=== PATIENT | male | born 1975 | race African-American/Black ===

== ENCOUNTER 2021-01-16 05:28 | Emergency (ER) | payer MEDICAID ==
[~2021-01-16] VITALS: Ht 175.3 cm; Wt 125.0 kg
[2021-01-16] MEDS ORDERED: OXYCODONE HCL/ACETAMINOPHEN 5/325MG TABLET PO ONE (05:45)
[2021-01-16 06:26] LABS: BASOPHILS % 0.4 % (0.0-2.0); EOSINOPHILS % 0.1 % (0.0-5.0); HEMATOCRIT. 44.7 % (42.0-52.0); HEMOGLOBIN. 15.2 g/dL (14.0-18.0); LYMPHOCYTES % 13.9 % (20.0-50.0); MEAN CORPUSCULAR HEMOGLOBIN 32.1 pg (28.0-32.0); MEAN CORPUSCULAR VOLUME 94.8 fL (80.0-94.0); MEAN PLATELET VOLUME 7.7 fl (7.4-10.4); MONOCYTES % 6.6 % (2.0-8.0); PLATELET 286 x1000/uL (130-400); RED BLOOD CELL COUNT 4.72 mill/uL (4.7-6.1); RED CELL DISTRIBUTION WIDTH 14.4 % (11.6-14.6)
[2021-01-16 06:37] LABS: CHLORIDE 110 mEq/L (98-107)
[2021-01-16 06:41] LABS: ETHANOL BLOOD 214 mg/dL
[2021-01-16] MEDS ORDERED: TETANUS, DIPHTHERIA, PERTUSSIS VAC/PF 0.5ML (>10YR OLD) IM ONE (08:00)
[2021-01-16] MEDS ORDERED: LIDOCAINE HCL/PF 1% 10 MG/ML 5ML VIAL INFIL ONE (08:00)
[2021-01-16] MEDS ORDERED: LIDOCAINE HCL/EPINEPHRINE 1%-EPI 1:100,000 20 ML VIAL INFIL ONE (08:00)
[2021-01-16] MEDS ORDERED: LIDOCAINE HCL 1% 10 MG/ML 10ML VIAL INJ NR (08:15)
[2021-01-16] MEDS ORDERED: TOPUD PO (08:58)
[2021-01-16 11:05] VITALS: BP 114/84
== END 2021-01-16 11:14 | disposition home or self-care (01) ==
LOC: ER 05:28
DX: S02.2XXA Fracture of nasal bones, initial encounter for closed fracture (principal); S01.511A Laceration without foreign body of lip, initial encounter; S09.8XXA Other specified injuries of head, initial encounter; K08.89 Other specified disorders of teeth and supporting structures; R45.83 Excessive crying of child, adolescent or adult; Z65.4 Victim of crime and terrorism; I10 Essential (primary) hypertension; V49.49XA Driver injured in collision with other motor vehicles in traffic accident, initial encounter; Y04.2XXA Assault by strike against or bumped into by another person, initial encounter; Y93.89 Activity, other specified; Y92.488 Other paved roadways as the place of occurrence of the external cause; K43.9 Ventral hernia without obstruction or gangrene; Z72.89 Other problems related to lifestyle
CPT/HCPCS: 12013; 36415; 70450; 70486; 71045; 72125; 74176; 80053; 80320; 85025; 90715; 99285; J3490; G0480

== ENCOUNTER 2024-09-05 21:06 | Emergency (ER) | payer MEDICAID ==
[~2024-09-05] VITALS: Ht 170.2 cm; Wt 110.0 kg
[~2024-09-05 21:06] MED LIST: TOPUD PO
[2024-09-05 21:42] VITALS: O2SAT 97
[2024-09-05 22:26] LABS: CLARITY URINE CLEAR (CLEAR); COLOR URINE DARK YELLOW (YELLOW); GLUCOSE URINE NEGATIVE (NEGATIVE); KETONES URINE 1+ (NEGATIVE); LEUKOCYTE ESTERASE URINE NEGATIVE (NEGATIVE); NITRITE URINE NEGATIVE (NEGATIVE); OCCULT BLOOD URINE NEGATIVE (NEGATIVE); PH URINE 6.0 (4.5-8.0); PROTEIN URINE TRACE (NEGATIVE); SPECIFIC GRAVITY URINE 1.027 (1.005-1.030); UROBILINOGEN URINE 2.0 E.U./dL (0.2-1.0)
[2024-09-05 22:44] LABS: *AMPHETAMINES SCREEN URINE NEGATIVE (NEGATIVE); *BARBITURATES SCREEN URINE NEGATIVE (NEGATIVE); *BENZODIAZEPINES SCREEN URINE NEGATIVE (NEGATIVE); *COCAINE SCREEN URINE NEGATIVE (NEGATIVE)
[2024-09-05 22:45] LABS: CANNABINOID URINE SCREEN PRESUMPTIVE POSITIVE (NEGATIVE); ECSTASY MDMA SCREEN URINE NEGATIVE (NEGATIVE); METHADONE URINE SCREEN NEGATIVE (NEGATIVE); OPIATES URINE SCREEN NEGATIVE (NEGATIVE); PHENCYCLIDINE URINE SCREEN NEGATIVE (NEGATIVE)
[2024-09-05 22:50] LABS: BACTERIA URINE TRACE; RBC URINE NONE SEEN /hpf (0-2); SQUAMOUS EPITHELIAL CELL URINE NONE SEEN /lpf (RARE/1+); WBC URINE 0-2 /hpf (0-2)
[2024-09-05 23:05] LABS: BASOPHILS % 0.8 % (0.0-2.0); EOSINOPHILS % 0.2 % (0.0-5.0); HEMATOCRIT. 39.6 % (42.0-52.0); HEMOGLOBIN. 13.5 g/dL (14.0-18.0); LYMPHOCYTES % 29.4 % (20.0-50.0); MEAN PLATELET VOLUME 8.2 fl (7.4-10.4); MONOCYTES % 5.8 % (2.0-8.0); NEUTROPHILS % 63.8 % (40.0-76.0); PLATELET 186 x1000/uL (130-400); RED BLOOD CELL COUNT 4.35 mill/uL (4.7-6.1); RED CELL DISTRIBUTION WIDTH 13.9 % (11.6-14.6)
[2024-09-05] MEDS: OLANZAPINE 5MG TABLET ODT PO ONE (23:08)
[2024-09-05 23:40] LABS: UREA NITROGEN BLOOD 10 mg/dL (9-23)
[2024-09-05 23:41] LABS: CREATININE 1.0 mg/dL (0.6-1.3)
[2024-09-05 23:42] LABS: ETHANOL BLOOD < 10 mg/dL (<10)
[2024-09-05 23:43] LABS: ASPARTATE AMINOTRANSFERASE 15 IU/L (<34); BILIRUBIN DIRECT 0.1 mg/dL (<=3.0); BILIRUBIN TOTAL 0.3 mg/dL (0.1-1.0); PROTEIN TOTAL 6.3 g/dL (6.0-8.3)
[2024-09-06 14:16] VITALS: BP 133/87; PULSE 66; RESP 16; TEMP 36.7; O2SAT 99
== END 2024-09-06 14:19 | disposition home or self-care (01) ==
LOC: ER 21:06
DX: R44.0 Auditory hallucinations (principal); I10 Essential (primary) hypertension; F10.90 Alcohol use, unspecified, uncomplicated; Z59.00 Homelessness unspecified; Z79.899 Other long term (current) drug therapy; Z20.822 Contact with and (suspected) exposure to COVID-19; Y90.0 Blood alcohol level of less than 20 mg/100 ml
CPT/HCPCS: 36415; 80048; 80076; 80305; 80307; 80320; 80329; 81003; 85025; 87426; 99285; G0480